=== PATIENT | female | born 1960 | race Caucasian/White ===

== ENCOUNTER → 2020-02-15 | Outpatient (CLI) | payer BC, OTHER | END | disposition home or self-care (01) | LOC: RAH 11:05 | PROVIDERS: ATTEND Physical Medicine & Rehabilitation | DX: M47.816 Spondylosis without myelopathy or radiculopathy, lumbar region (principal); M47.814 Spondylosis without myelopathy or radiculopathy, thoracic region; M48.061 Spinal stenosis, lumbar region without neurogenic claudication; M48.04 Spinal stenosis, thoracic region; M25.78 Osteophyte, vertebrae | CPT/HCPCS: 72074; 72110 ==

== ENCOUNTER → 2020-03-13 | Outpatient (CLI) | payer OTHER | END | disposition home or self-care (01) | LOC: RAH 08:45 | PROVIDERS: ATTEND Physical Medicine & Rehabilitation | DX: M54.6 Pain in thoracic spine (principal) | CPT/HCPCS: 72146 ==

== ENCOUNTER → 2020-04-30 | Outpatient (CLI) | payer OTHER | END | disposition home or self-care (01) | LOC: RAH 11:04 | PROVIDERS: ATTEND Physical Medicine & Rehabilitation | DX: M51.27 Other intervertebral disc displacement, lumbosacral region (principal); M47.817 Spondylosis without myelopathy or radiculopathy, lumbosacral region; M51.36 Other intervertebral disc degeneration, lumbar region | CPT/HCPCS: 72148 ==

== ENCOUNTER 2022-07-06 05:42 | Observation (INO) | payer BC ==
[2022-07-03 14:11] LABS: BASOPHILS % (AUTO) 0.8 % (0.0-5.0); HEMATOCRIT 44.9 % (36-48); LYMPHOCYTES % (AUTO) 28.3 % (21.0-51.0); MEAN CORPUSCULAR HEMOGLOBIN 29.1 pg (27.0-33.0); MEAN CORPUSCULAR VOLUME 88.2 fL (79-99); MONOCYTES % (AUTO) 5.5 % (3.0-13.0); NEUTROPHILS % (AUTO) 63.1 % (40.0-77.0); PLATELET COUNT (AUTO) 320 K/uL (130-400); RED BLOOD CELL COUNT(AUTO) 5.09 MIL/uL (4.00-5.50); RED CELL DISTRIBUTION WIDTH 13.2 % (11.0-15.5); WHITE BLOOD COUNT (AUTO) 7.8 K/uL (4.8-10.8)
[2022-07-03 14:21] VITALS: BP 140/79
[2022-07-03 14:24] LABS: APPEARANCE,URINE CLEAR (CLEAR); BILIRUBIN,URINE NEGATIVE (NEGATIVE); COLOR,URINE LIGHT-YELLOW (YELLOW); GLUCOSE, URINE (UA) >=1000 mg/dL (NEGATIVE); KETONES,URINE NEGATIVE (NEGATIVE); LEUKOCYTE ESTERASE ,URINE NEGATIVE Leu/uL (NEGATIVE); NITRATE,URINE NEGATIVE (NEGATIVE); OCCULT BLOOD,URINE NEGATIVE (NEGATIVE); PROTEIN,URINE NEGATIVE (NEGATIVE); UROBILINOGEN,URINE 0.2 mg/dL (0.2-1.0)
[2022-07-03 14:28] LABS: INR 0.93 (0.85-1.15); PROTHROMBIN TIME 10.2 SEC (9.6-11.6)
[2022-07-03 14:30] LABS: PARTIAL THROMBOPLASTIN TIME 27.6 SEC (26.3-35.5)
[2022-07-03 14:48] LABS: ALBUMIN 3.9 g/dL (3.5-5.0); CARBON DIOXIDE 32 mmol/L (21-32); CHLORIDE 100 mmol/L (101-111); GLOMERULAR FILTR. RATE CALC 60 mL/min (>60); GLUCOSE,RANDOM 104 mg/dL (70-105); POTASSIUM 3.5 mmol/L (3.5-5.1); SODIUM SERUM 138 mmol/L (136-145); UREA NITROGEN, BLOOD 15 mg/dL (7-18)
[2022-07-03 14:57] LABS: CRP QUANTITATIVE < 2.00 mg/L (0.00-9.0)
[2022-07-03 15:06] LABS: BACTERIA,URINE RARE /HPF (None Seen); MUCUS,URINE RARE LPF (None Seen); SQUAMOUS EPITHELIAL CELL,UR RARE /HPF (0-2); WBC,URINE 0-1 /HPF (0-1)
[2022-07-06] VITALS (27 sets, daily range): BP systolic 117–173; BP diastolic 50–90
[~2022-07-06] VITALS: Ht 170.2 cm; Wt 92.1 kg
[~2022-07-06 05:42] MED LIST: AMLO2.5T4 PO; COQ10 PO; EMPA10TA PO; ESCI20TA38 PO; LEVO75TA4 PO; LORA10TA7 PO; METO25TA3 PO; MONT10TA21 PO; MULT-1367 PO; PANT40TA PO; ROSU20TA23 PO; TIZA4CAP8 PO; VALS1TAB7 PO; VITA1TAB22 PO
[2022-07-06] MEDS ORDERED: BUPIVACAINE/PF 0.5% 10ML VIAL ONE (07:53)
[2022-07-06] MEDS ORDERED: KETOROLAC 30MG VIAL (30MG/ML) ONE (07:54)
[2022-07-06] MEDS ORDERED: 0.9%NACL 1000ML 1,000 ML IV ONE (08:12)
[2022-07-06] MEDS ORDERED: PROPOFOL 10 MG/ML 20ML VIAL IV ONE ×2 (08:14→11:50)
[2022-07-06] MEDS ORDERED: GLYCOPYRROLATE 1 MG/5 ML SYRINGE ONE (08:14)
[2022-07-06] MEDS ORDERED: LIDOCAINE PF 100MG/5ML (2%) SYRINGE 5ML ONE (08:14)
[2022-07-06] MEDS ORDERED: DEXAMETHASONE SOD PHOSPHATE 10MG/ML 1ML VIAL ONE (08:14)
[2022-07-06] MEDS ORDERED: ONDANSETRON 4MG INJ ONE (08:14)
[2022-07-06] MEDS ORDERED: SUCCINYLCHOLINE 200MG/10ML SYR ONE (08:14)
[2022-07-06] MEDS ORDERED: ROCURONIUM 10MG/1ML SYR 10 MG/ML ML ONE ×2 (08:15→08:23)
[2022-07-06] MEDS ORDERED: MIDAZOLAM HCL 1 MG/ML 2ML VIAL ONE (08:15)
[2022-07-06] MEDS ORDERED: FENTANYL CITRATE PF 50 MCG/1 ML 2ML VIAL ONE ×4 (08:15→13:41)
[2022-07-06] MEDS ORDERED: NEOSTIGMINE 5MG/5ML SYR IV ONE (08:15)
[2022-07-06] MEDS: CEFAZOLIN SODIUM 2 GM VIAL ONE ×2 (08:51→10:50)
[2022-07-06] MEDS ORDERED: TRANEXAMIC ACID 1000MG/10ML ONE ×2 (10:29→10:30)
[2022-07-06] MEDS ORDERED: POTASSIUM CHLORIDE 10% ELIXIR 20 MEQ/15 ML UDCUP PO PRN (13:00)
[2022-07-06] MEDS ORDERED: DiphenhydrAMINE HCL 50 MG/ML VIAL IVP PRN (13:00)
[2022-07-06] MEDS ORDERED: ONDANSETRON 4MG INJ IVP PRN (13:00)
[2022-07-06] MEDS: KETOROLAC 15MG/ML VIAL (15MG/ML) IV SCH ×2 (13:00→18:10)
[2022-07-06] MEDS ORDERED: FERROUS FUMARATE 324 MG TABLET PO PRN (13:00)
[2022-07-06] MEDS ORDERED: HYDROCODONE/ACETAMINOPHEN 5/325 MG TAB PO PRN (13:00)
[2022-07-06] MEDS ORDERED: TRAMADOL HCL 50 MG TABLET PO PRN (13:00)
[2022-07-06] MEDS ORDERED: LIDOCAINE HCL-MPF 1% 2ML VIAL IV PRN (13:00)
[2022-07-06] MEDS ORDERED: KCL 20 MEQ ERTAB PO PRN (13:00)
[2022-07-06] MEDS ORDERED: POTASSIUM CHLORIDE 20MEQ/100ML 100 ML IV PRN (13:00)
[2022-07-06] MEDS ORDERED: CALCIUM CARB 500MG PO PRN (13:00)
[2022-07-06] MEDS: PHARMACY COMMUNICATION MISC SCH ×3 (13:30→22:30)
[2022-07-06] MEDS: 0.9%NACL 1000ML 1,000 ML IV SCH ×2 (14:55→23:00)
[2022-07-06] MEDS: INSULIN HUMULIN R 100 UNIT/ML 3ML SQ SCH ×2 (16:30→21:00)
[2022-07-06] MEDS ORDERED: PHARMACY COMMUNICATION MISC SCH (17:00)
[2022-07-06] MEDS: CEFAZOLIN SODIUM 1 GM VIAL IVP SCH (18:03)
[2022-07-06] MEDS: GABAPENTIN 100 MG CAPSULE PO SCH ×2 (18:03→20:45)
[2022-07-06] MEDS: TIZANIDINE HCL 2 MG TABLET PO SCH (20:45)
[2022-07-06] MEDS: DOCUSATE SODIUM 100 MG CAP PO SCH (20:45)
[2022-07-06] MEDS: CRESTOR 20MG PO SCH (21:00)
[2022-07-06] MEDS: KETOROLAC 15MG/ML VIAL (15MG/ML) IV PRN (21:00)
[2022-07-07] MEDS: CEFAZOLIN SODIUM 1 GM VIAL IVP SCH (01:16)
[2022-07-07] MEDS ORDERED: TRAMADOL HCL 50 MG TABLET PO PRN (01:30)
[2022-07-07] MEDS ORDERED: TRAMADOL HCL 50 MG TABLET ONE (01:31)
[2022-07-07] MEDS: PHARMACY COMMUNICATION MISC SCH ×5 (02:00→18:00)
[2022-07-07 03:15] VITALS: BP 104/55
[2022-07-07] MEDS: KETOROLAC 15MG/ML VIAL (15MG/ML) IV SCH (05:37)
[2022-07-07 06:20] LABS: HEMATOCRIT 34.4 % (36-48); MEAN CORPUSCULAR HGB CONC 32.8 g/dL (32.0-36.0); MEAN CORPUSCULAR VOLUME 88.4 fL (79-99); RED BLOOD CELL COUNT(AUTO) 3.89 MIL/uL (4.00-5.50); RED CELL DISTRIBUTION WIDTH 13.2 % (11.0-15.5); WHITE BLOOD COUNT (AUTO) 10.9 K/uL (4.8-10.8)
[2022-07-07 06:26] LABS: CREATININE 0.9 mg/dL (0.5-1.5); POTASSIUM 3.5 mmol/L (3.5-5.1)
[2022-07-07] MEDS ORDERED: HYDROCODONE/ACETAMINOPHEN 5/325 MG TAB ONE (06:42)
[2022-07-07] MEDS: LEVOTHYROXINE 75 MCG TABLET PO SCH (06:43)
[2022-07-07] MEDS ORDERED: PHARMACY COMMUNICATION MISC SCH (07:00)
[2022-07-07] MEDS: INSULIN HUMULIN R 100 UNIT/ML 3ML SQ SCH ×4 (07:30→21:00)
[2022-07-07 08:00] VITALS: BP 106/54
[2022-07-07] MEDS: DIOVAN HCT PO SCH (09:00)
[2022-07-07] MEDS: ESCITALOPRAM 20MG PO SCH (09:00)
[2022-07-07] MEDS: 0.9%NACL 1000ML 1,000 ML IV SCH (09:00)
[2022-07-07] MEDS: ASPIRIN 325MG TAB PO SCH (10:23)
[2022-07-07] MEDS: GABAPENTIN 100 MG CAPSULE PO SCH ×3 (10:23→21:47)
[2022-07-07] MEDS: PANTOPRAZOLE 40 MG TAB DR PO SCH (10:24)
[2022-07-07] MEDS: HYDROCODONE/ACETAMINOPHEN 5/325 MG TAB PO PRN ×4 (10:25→20:09)
[2022-07-07] MEDS: MONTELUKAST SODIUM 10 MG TAB PO SCH (10:25)
[2022-07-07] MEDS: DOCUSATE SODIUM 100 MG CAP PO SCH ×2 (10:26→21:47)
[2022-07-07] MEDS: LORATADINE 10 MG TABLET PO SCH (10:26)
[2022-07-07] MEDS: POLYETHYLENE GLYCOL 3350 17 GM POWD.PACK PO SCH (10:26)
[2022-07-07] MEDS: AMLODIPINE 2.5 MG TAB PO SCH (10:26)
[2022-07-07] MEDS: EMPAGLIFLOZIN 10MG TABLET PO SCH (10:26)
[2022-07-07 12:00] VITALS: BP 117/71
[2022-07-07] MEDS: CYCLOBENZAPRINE HCL 10 MG TABLET PO PRN ×2 (14:42→21:48)
[2022-07-07 16:00] VITALS: BP 87/48
[2022-07-07 20:40] VITALS: BP 107/66
[2022-07-07] MEDS: COQ10 PO SCH (21:00)
[2022-07-07] MEDS: CRESTOR 20MG PO SCH (21:00)
[2022-07-07] MEDS: TIZANIDINE HCL 2 MG TABLET PO SCH (21:46)
[2022-07-07] MEDS: METOPROLOL SUCCINATE 25 MG TAB.SR.24H PO SCH (21:49)
[2022-07-07] MEDS: KETOROLAC 15MG/ML VIAL (15MG/ML) IV PRN (21:55)
[2022-07-07 23:49] VITALS: BP 101/61
[2022-07-08] MEDS: HYDROCODONE/ACETAMINOPHEN 5/325 MG TAB PO PRN ×4 (03:16→23:23)
[2022-07-08 03:59] VITALS: BP 107/61
[2022-07-08] MEDS: LEVOTHYROXINE 75 MCG TABLET PO SCH (06:30)
[2022-07-08] MEDS: INSULIN HUMULIN R 100 UNIT/ML 3ML SQ SCH ×4 (07:30→20:40)
[2022-07-08 08:00] VITALS: BP 105/61
[2022-07-08] MEDS: POLYETHYLENE GLYCOL 3350 17 GM POWD.PACK PO SCH (08:29)
[2022-07-08] MEDS: DOCUSATE SODIUM 100 MG CAP PO SCH ×2 (08:30→20:39)
[2022-07-08] MEDS: EMPAGLIFLOZIN 10MG TABLET PO SCH (08:30)
[2022-07-08] MEDS: VITAMIN B COMPLEX 1 CAPSULE PO SCH (08:30)
[2022-07-08] MEDS: MONTELUKAST SODIUM 10 MG TAB PO SCH (08:30)
[2022-07-08] MEDS: PANTOPRAZOLE 40 MG TAB DR PO SCH (08:30)
[2022-07-08] MEDS: LORATADINE 10 MG TABLET PO SCH (08:30)
[2022-07-08] MEDS: ASPIRIN 325MG TAB PO SCH (08:30)
[2022-07-08] MEDS: GABAPENTIN 100 MG CAPSULE PO SCH ×3 (08:31→20:41)
[2022-07-08] MEDS: DIOVAN HCT PO SCH (08:37)
[2022-07-08] MEDS: AMLODIPINE 2.5 MG TAB PO SCH (08:37)
[2022-07-08] MEDS: ESCITALOPRAM 20MG PO SCH (08:37)
[2022-07-08 11:00] VITALS: BP 121/67
[2022-07-08] MEDS: KETOROLAC 15MG/ML VIAL (15MG/ML) IV PRN (11:44)
[2022-07-08 17:00] VITALS: BP 136/73
[2022-07-08 20:00] VITALS: BP 126/69
[2022-07-08] MEDS: CRESTOR 20MG PO SCH (20:38)
[2022-07-08] MEDS: COQ10 PO SCH (20:38)
[2022-07-08] MEDS: METOPROLOL SUCCINATE 25 MG TAB.SR.24H PO SCH (20:39)
[2022-07-08] MEDS: TIZANIDINE HCL 2 MG TABLET PO SCH (20:39)
[2022-07-09] VITALS: BP 92/52
[2022-07-09] MEDS: KETOROLAC 15MG/ML VIAL (15MG/ML) IV PRN ×2 (03:18→14:05)
[2022-07-09 04:00] VITALS: BP 112/57
[2022-07-09] MEDS: LEVOTHYROXINE 75 MCG TABLET PO SCH (06:19)
[2022-07-09] MEDS: INSULIN HUMULIN R 100 UNIT/ML 3ML SQ SCH ×2 (06:20→11:30)
[2022-07-09 08:30] VITALS: BP 147/70
[2022-07-09] MEDS: DIOVAN HCT PO SCH (09:00)
[2022-07-09] MEDS: ESCITALOPRAM 20MG PO SCH (09:00)
[2022-07-09] MEDS: GABAPENTIN 100 MG CAPSULE PO SCH ×2 (09:03→14:10)
[2022-07-09] MEDS: VITAMIN B COMPLEX 1 CAPSULE PO SCH (09:03)
[2022-07-09] MEDS: ASPIRIN 325MG TAB PO SCH (09:03)
[2022-07-09] MEDS: MONTELUKAST SODIUM 10 MG TAB PO SCH (09:04)
[2022-07-09] MEDS: PANTOPRAZOLE 40 MG TAB DR PO SCH (09:04)
[2022-07-09] MEDS: AMLODIPINE 2.5 MG TAB PO SCH (09:04)
[2022-07-09] MEDS: DOCUSATE SODIUM 100 MG CAP PO SCH (09:05)
[2022-07-09] MEDS: POLYETHYLENE GLYCOL 3350 17 GM POWD.PACK PO SCH (09:06)
[2022-07-09] MEDS: HYDROCODONE/ACETAMINOPHEN 5/325 MG TAB PO PRN (09:07)
[2022-07-09] MEDS: LORATADINE 10 MG TABLET PO SCH (09:16)
[2022-07-09] MEDS: EMPAGLIFLOZIN 10MG TABLET PO SCH (09:20)
[2022-07-09 11:00] VITALS: BP 131/76
[2022-07-09] MEDS ORDERED: BISACODYL 10 MG SUPP.RECT RC PRN (13:00)
[2022-07-09] MEDS ORDERED: HYDR-4060 PO (13:09)
[2022-07-09] MEDS ORDERED: DOCU100T PO (13:09)
[2022-07-09] MEDS ORDERED: GABA100C PO (13:09)
[2022-07-09] MEDS ORDERED: CYCL-309 PO (13:09)
[2022-07-09] MEDS ORDERED: ASPI-1026 PO (13:09)
== END 2022-07-09 14:40 | disposition home health service (06) ==
LOC: DAH 05:42 → DAHIP 05:43 → DAH 05:43 → 3CH 15:05
PROVIDERS: ADMIT Student in an Organized Health Care Education/Training Program; ATTEND Student in an Organized Health Care Education/Training Program
DX: M17.11 Unilateral primary osteoarthritis, right knee (principal); Z20.822 Contact with and (suspected) exposure to COVID-19; M25.561 Pain in right knee; G89.29 Other chronic pain; M17.0 Bilateral primary osteoarthritis of knee; I10 Essential (primary) hypertension; E78.5 Hyperlipidemia, unspecified; E11.9 Type 2 diabetes mellitus without complications; F32.9 Major depressive disorder, single episode, unspecified; M41.9 Scoliosis, unspecified; R26.89 Other abnormalities of gait and mobility; Z79.899 Other long term (current) drug therapy; Z98.890 Other specified postprocedural states; Z79.82 Long term (current) use of aspirin
CPT/HCPCS: 82040; 80048 ×2; 85025; 85610; 85730; 87088; 84134; 86140; 87426; 81001; 36415 ×2; 27447; 96374; 96376 ×3; 96375; 76942; 64447; 87077; 87186; 82948 ×14; 73560; 87641; 85027; 97161; 97039 ×6; 97116 ×6; 97530 ×5; G0378 ×68; A4663; A4215 ×2; J3010 ×4; J0690 ×3; J3490 ×4; J0330; J1100; J2710; J7030 ×2; J2001; J2250; J2704 ×2; J2405 ×2; J1885 ×8; G0168; A4649 ×3; C1776; A6255; A4615; A4223; A4222; A4221

== ENCOUNTER 2022-10-14 05:49 | Observation (INO) | payer BC ==
[2022-10-12 09:58] LABS: BASOPHILS % (AUTO) 0.8 % (0.0-5.0); EOSINOPHILS % (AUTO) 3.1 % (0.0-8.0); HEMATOCRIT 45.3 % (36-48); LYMPHOCYTES % (AUTO) 27.9 % (21.0-51.0); MEAN CORPUSCULAR HEMOGLOBIN 28.2 pg (27.0-33.0); MEAN CORPUSCULAR HGB CONC 31.8 g/dL (32.0-36.0); MEAN CORPUSCULAR VOLUME 88.6 fL (79-99); MONOCYTES % (AUTO) 5.9 % (3.0-13.0); PLATELET COUNT (AUTO) 320 K/uL (130-400); RED BLOOD CELL COUNT(AUTO) 5.11 MIL/uL (4.00-5.50); WHITE BLOOD COUNT (AUTO) 6.1 K/uL (4.8-10.8)
[2022-10-12 10:07] VITALS: BP 140/83
[2022-10-12 10:07] LABS: ALBUMIN 4.1 g/dL (3.5-5.0); CARBON DIOXIDE 32 mmol/L (21-32); CHLORIDE 102 mmol/L (101-111); CREATININE 0.9 mg/dL (0.5-1.5); CRP QUANTITATIVE < 2.00 mg/L (0.00-9.0); GLOMERULAR FILTR. RATE CALC 72 mL/min (>90); GLUCOSE,RANDOM 103 mg/dL (70-105); POTASSIUM 4.6 mmol/L (3.5-5.1); SODIUM SERUM 141 mmol/L (136-145); UREA NITROGEN, BLOOD 21 mg/dL (7-18)
[2022-10-12 10:10] LABS: INR 0.93 (0.85-1.15); PROTHROMBIN TIME 10.2 SEC (9.6-11.6)
[2022-10-12 10:11] LABS: PARTIAL THROMBOPLASTIN TIME 27.3 SEC (26.3-35.5)
[2022-10-12 10:26] LABS: APPEARANCE,URINE CLEAR (CLEAR); BILIRUBIN,URINE NEGATIVE (NEGATIVE); COLOR,URINE LIGHT-YELLOW (YELLOW); GLUCOSE, URINE (UA) >=1000 mg/dL (NEGATIVE); KETONES,URINE NEGATIVE (NEGATIVE); LEUKOCYTE ESTERASE ,URINE NEGATIVE Leu/uL (NEGATIVE); NITRATE,URINE NEGATIVE (NEGATIVE); OCCULT BLOOD,URINE NEGATIVE (NEGATIVE); PROTEIN,URINE NEGATIVE (NEGATIVE); UROBILINOGEN,URINE 0.2 mg/dL (0.2-1.0)
[2022-10-12 10:31] LABS: BACTERIA,URINE RARE /HPF (None Seen); RBC,URINE 0-1 /HPF (0-1); SQUAMOUS EPITHELIAL CELL,UR RARE /HPF (0-2); WBC,URINE 0-1 /HPF (0-1)
[~2022-10-14] VITALS: Ht 170.2 cm; Wt 85.0 kg
[2022-10-14] VITALS (27 sets, daily range): BP systolic 105–152; BP diastolic 63–90
[~2022-10-14 05:49] MED LIST changes: -COQ10 PO; +MILK500C PO; +MONT-47 PO; -MONT10TA21 PO; -MULT-1367 PO; -VITA1TAB22 PO
[2022-10-14] MEDS ORDERED: KETOROLAC 30MG VIAL (30MG/ML) ONE ×2 (06:18→08:09)
[2022-10-14] MEDS ORDERED: ROPIVACAINE 0.5% 5MG/ML 30ML IJ ONE ×2 (06:19→06:56)
[2022-10-14] MEDS ORDERED: CEFAZOLIN SODIUM 2 GM VIAL ONE (06:33)
[2022-10-14] MEDS ORDERED: LACTATED RINGERS 1000ML 1,000 ML IV ONE (06:33)
[2022-10-14] MEDS ORDERED: PROPOFOL 10 MG/ML 20ML VIAL IV ONE (06:53)
[2022-10-14] MEDS ORDERED: MIDAZOLAM HCL 1 MG/ML 2ML VIAL ONE (06:53)
[2022-10-14] MEDS ORDERED: LIDOCAINE PF 100MG/5ML (2%) SYRINGE 5ML ONE (06:53)
[2022-10-14] MEDS ORDERED: FENTANYL CITRATE PF 50 MCG/1 ML 2ML VIAL ONE ×2 (06:53→07:52)
[2022-10-14] MEDS ORDERED: ONDANSETRON 4MG INJ ONE (07:15)
[2022-10-14] MEDS ORDERED: DEXAMETHASONE SOD PHOSPHATE 10MG/ML 1ML VIAL ONE (07:15)
[2022-10-14] MEDS ORDERED: CEFAZOLIN SODIUM 2 GM VIAL IVPB ONE (07:18)
[2022-10-14] MEDS ORDERED: EPHEDRINE SULFATE 50 MG/ML AMPULE ONE (07:27)
[2022-10-14] MEDS ORDERED: NEOSTIGMINE 5MG/5ML SYR IV ONE (08:46)
[2022-10-14] MEDS ORDERED: GLYCOPYRROLATE 1 MG/5 ML SYRINGE ONE (08:46)
[2022-10-14] MEDS ORDERED: TRANEXAMIC ACID 1000MG/10ML ONE (08:48)
[2022-10-14] MEDS ORDERED: TRAMADOL HCL 50 MG TABLET PO PRN (09:30)
[2022-10-14] MEDS: KETOROLAC 15MG/ML VIAL (15MG/ML) IV SCH ×2 (09:30→17:58)
[2022-10-14] MEDS ORDERED: KETOROLAC 15MG/ML VIAL (15MG/ML) IV PRN (09:30)
[2022-10-14] MEDS ORDERED: POTASSIUM CHLORIDE 10% ELIXIR 20 MEQ/15 ML UDCUP PO PRN (09:30)
[2022-10-14] MEDS ORDERED: FERROUS FUMARATE 324 MG TABLET PO PRN (09:30)
[2022-10-14] MEDS ORDERED: ONDANSETRON 4MG INJ IVP PRN (09:30)
[2022-10-14] MEDS ORDERED: KCL 20 MEQ ERTAB PO PRN (09:30)
[2022-10-14] MEDS ORDERED: DiphenhydrAMINE HCL 50 MG/ML VIAL IVP PRN (09:30)
[2022-10-14] MEDS ORDERED: CYCLOBENZAPRINE HCL 10 MG TABLET PO PRN (09:30)
[2022-10-14] MEDS ORDERED: CALCIUM CARB 500MG PO PRN (09:30)
[2022-10-14] MEDS: 0.9%NACL 1000ML 1,000 ML IV SCH ×2 (09:30→21:15)
[2022-10-14] MEDS ORDERED: POTASSIUM CHLORIDE 20MEQ/100ML 100 ML IV PRN (09:30)
[2022-10-14] MEDS: INSULIN HUMULIN R 100 UNIT/ML 3ML SQ SCH ×3 (11:30→21:00)
[2022-10-14] MEDS: CEFAZOLIN SODIUM 2 GM VIAL IVPB SCH ×2 (15:21→22:55)
[2022-10-14] MEDS: GABAPENTIN 100 MG CAPSULE PO SCH ×2 (15:22→21:15)
[2022-10-14] MEDS: DOCUSATE SODIUM 100 MG CAP PO SCH (21:15)
[2022-10-14] MEDS: HYDROCODONE/ACETAMINOPHEN 5/325 MG TAB PO PRN (23:51)
[2022-10-15 00:45] VITALS: BP 152/87
[2022-10-15] MEDS: KETOROLAC 15MG/ML VIAL (15MG/ML) IV SCH (01:40)
[2022-10-15 04:45] VITALS: BP 144/79
[2022-10-15 04:47] LABS: HEMATOCRIT 34.1 % (36-48); MEAN CORPUSCULAR HEMOGLOBIN 29.5 pg (27.0-33.0); MEAN CORPUSCULAR HGB CONC 34.3 g/dL (32.0-36.0); MEAN CORPUSCULAR VOLUME 86.1 fL (79-99); RED BLOOD CELL COUNT(AUTO) 3.96 MIL/uL (4.00-5.50); RED CELL DISTRIBUTION WIDTH 13.5 % (11.0-15.5); WHITE BLOOD COUNT (AUTO) 12.5 K/uL (4.8-10.8)
[2022-10-15 05:01] LABS: CREATININE 0.9 mg/dL (0.5-1.5); POTASSIUM 4.1 mmol/L (3.5-5.1)
[2022-10-15] MEDS: 0.9%NACL 1000ML 1,000 ML IV SCH (05:44)
[2022-10-15] MEDS: INSULIN HUMULIN R 100 UNIT/ML 3ML SQ SCH ×3 (06:30→16:30)
[2022-10-15 08:00] VITALS: BP 159/84
[2022-10-15] MEDS: HYDROCODONE/ACETAMINOPHEN 5/325 MG TAB PO PRN ×2 (08:16→17:58)
[2022-10-15] MEDS: DOCUSATE SODIUM 100 MG CAP PO SCH (08:16)
[2022-10-15 08:45] VITALS: BP 115/78
[2022-10-15] MEDS ORDERED: POLYETHYLENE GLYCOL 3350 17 GM POWD.PACK PO SCH (09:00)
[2022-10-15] MEDS: GABAPENTIN 100 MG CAPSULE PO SCH ×2 (09:00→14:00)
[2022-10-15] MEDS ORDERED: ASPIRIN 325MG TAB PO SCH (09:00)
[2022-10-15 12:00] VITALS: BP 103/66
[2022-10-15] MEDS ORDERED: ASPI-1026 PO (15:59)
[2022-10-15] MEDS ORDERED: ACET-2079 PO (15:59)
[2022-10-15] MEDS ORDERED: CYCL-309 PO (15:59)
[2022-10-15] MEDS ORDERED: DOCU-116 PO (15:59)
[2022-10-15 16:00] VITALS: BP 143/66
[2022-10-17] MEDS ORDERED: BISACODYL 10 MG SUPP.RECT RC PRN (09:30)
== END 2022-10-15 18:40 | disposition home health service (06) ==
LOC: DAH 05:49 → DAHIP 05:50 → 4AH 10:58
PROVIDERS: ADMIT Student in an Organized Health Care Education/Training Program; ATTEND Student in an Organized Health Care Education/Training Program
DX: M17.12 Unilateral primary osteoarthritis, left knee (principal); Z20.822 Contact with and (suspected) exposure to COVID-19; D62 Acute posthemorrhagic anemia; M21.70 Unequal limb length (acquired), unspecified site; I10 Essential (primary) hypertension; E78.5 Hyperlipidemia, unspecified; E11.9 Type 2 diabetes mellitus without complications; E03.9 Hypothyroidism, unspecified; F32.A Depression, unspecified; Z96.651 Presence of right artificial knee joint; Z79.899 Other long term (current) drug therapy; Z90.710 Acquired absence of both cervix and uterus
CPT/HCPCS: 82040; 80048 ×2; 85025; 85610; 85730; 87088; 84134; 86140; 87426; 81001; 36415 ×2; 87641; 64447; 27447; 96365; 96366; 96375; 82948 ×8; 73560; 96376; 85027; 97161; 97039 ×2; 97116 ×2; 97530; G0378 ×33; A4663; A4215 ×2; J7120; J3010 ×2; J3490 ×3; J1100; J2710; J2001; J2250; J2704; J2405; J1885 ×4; J2795 ×2; J0690 ×4; C1713 ×2; G0168; A4649 ×4; C1776; A6255; A5120; A4223; A4222; A4221